=== PATIENT | female | born 1955 | race Hispanic/Latino ===

== ENCOUNTER 2019-07-12 07:36 | Day surgery (SDC) | payer BC, OTHER ==
[2019-07-10 14:59] VITALS: BP 138/64
[2019-07-10 15:19] LABS: BASOPHILS % (AUTO) 0.3 % (0.0-5.0); EOSINOPHILS % (AUTO) 15.4 % (0.0-8.0); HEMATOCRIT 36.4 % (36-48); LYMPHOCYTES % (AUTO) 3.9 % (21.0-51.0); MEAN CORPUSCULAR HEMOGLOBIN 25.5 pg (27.0-33.0); MEAN CORPUSCULAR HGB CONC 31.9 g/dL (32.0-36.0); MONOCYTES % (AUTO) 6.8 % (3.0-13.0); NEUTROPHILS % (AUTO) 72.3 % (40.0-77.0); PLATELET COUNT (AUTO) 219 K/uL (130-400); RED BLOOD CELL COUNT(AUTO) 4.55 MIL/uL (4.00-5.50); RED CELL DISTRIBUTION WIDTH 15.8 % (11.0-15.5); WHITE BLOOD COUNT (AUTO) 24.4 K/uL (4.8-10.8)
[2019-07-10 15:29] LABS: POTASSIUM 3.8 mmol/L (3.5-5.1)
--- NOTE | 2019-07-10 15:30 | NUR ---
PROCEDURE PT HERE FOR PROCEDURE. STATES HAS ISSUES WITH LYING FLAT IN BED DUE TO BACK PAIN. HAS CONCERNS WITH POSITIONING AND ASKING IF PROCEDURE WILL BE WITH ANESTHESIA. CALLED AND INFORMED RITESH MCGINNIS OF PTS CONCERNS WITH POSITION AND ANESTHESIA. PROCEDURE WILL NOT BE DONE WITH ANESTHESIA WILL BE GIVEN MEDICATION INTRA-PROCEDURE TO HELP WITH POSITION.
[2019-07-10 15:33] LABS: INR 1.07 (0.85-1.15); PARTIAL THROMBOPLASTIN TIME 28.2 SEC (26.3-35.5); PROTHROMBIN TIME 11.2 SEC (9.6-11.6)
--- NOTE | 2019-07-11 14:04 | NUR ---
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 New orders for cbc and bmp in am.
[~2019-07-12] VITALS: Ht 165.1 cm; Wt 99.3 kg
[~2019-07-12 07:36] MED LIST: AMLO2.5T4 PO; ASPI-555 PO; CHOL500062 PO; DICL2100G TP; HYOS-28 PO; INSU300I SQ; LACT10SO PO; LANS30CA55 PO; LIDOP TP; METO-408 PO; ONDA8TAB12 PO; PRED20TA3 PO; PREMC VG; SOLI10TA7 PO; TELM40TA8 PO; THYR30TA PO; TRAM50TA4 PO
[2019-07-12 08:26] LABS: APPEARANCE,URINE Clear (CLEAR); BILIRUBIN,URINE Negative (NEGATIVE); COLOR,URINE Yellow (YELLOW); GLUCOSE, URINE (UA) 250 mg/dL (NEGATIVE); KETONES,URINE Trace mg/dL (NEGATIVE); LEUKOCYTE ESTERASE ,URINE Moderate (NEGATIVE); NITRATE,URINE Negative (NEGATIVE); OCCULT BLOOD,URINE Small (NEGATIVE); PH,URINE 6.5 (5.0-8.0); PROTEIN,URINE Trace mg/dL (NEGATIVE)
[2019-07-12 08:34] LABS: BASOPHILS % (AUTO) 0.2 % (0.0-5.0); EOSINOPHILS % (AUTO) 9.2 % (0.0-8.0); MEAN CORPUSCULAR HEMOGLOBIN 25.2 pg (27.0-33.0); MEAN CORPUSCULAR HGB CONC 32.7 g/dL (32.0-36.0); MEAN CORPUSCULAR VOLUME 77.1 fL (79-99); MONOCYTES % (AUTO) 7.3 % (3.0-13.0); NEUTROPHILS % (AUTO) 78.7 % (40.0-77.0); PLATELET COUNT (AUTO) 215 K/uL (130-400); RED CELL DISTRIBUTION WIDTH 15.8 % (11.0-15.5); WHITE BLOOD COUNT (AUTO) 25.3 K/uL (4.8-10.8)
[2019-07-12 08:42] LABS: CREATININE 1.8 mg/dL (0.5-1.5); POTASSIUM 3.6 mmol/L (3.5-5.1)
[2019-07-12 08:53] LABS: BACTERIA,URINE Few /HPF (None Seen)
--- NOTE | 2019-07-12 09:30 | NUR ---
PROCEDURE CANCELLED DR RASHEED SPOKE WITH PATIENT AT BEDSIDE AND EXPLAINED TO PATIENT THE REASONS WHY HE WAS CANCELING PROCEDURE TODAY. PATIENT VERBALIZED UNDERSTANDING. PATIENT INSTRUCTED TO TAKE HER LAB RESULTS TO DR BAER AND DR SINGH FOR REVIEW.
--- NOTE | 2019-07-12 09:45 | NUR ---
PATIENT PROVIDED WITH COPIES OF LAB RESULTS TO TAKE TO HER PCP AND ONCOLOGIST, PATIENT ESCORTED OUT FROM DAY PATIENT AND ACCOMPANIED BY SISTER.
== END 2019-07-12 09:45 | disposition home or self-care (01) ==
LOC: DAH 07:36
PROVIDERS: ATTEND Internal Medicine Cardiovascular Disease
DX: R94.39 Abnormal result of other cardiovascular function study (principal); Z53.8 Procedure and treatment not carried out for other reasons; Z85.51 Personal history of malignant neoplasm of bladder; Z88.3 Allergy status to other anti-infective agents; Z79.82 Long term (current) use of aspirin; Z79.899 Other long term (current) drug therapy; Z79.4 Long term (current) use of insulin; Z82.49 Family history of ischemic heart disease and other diseases of the circulatory system; Z83.3 Family history of diabetes mellitus
CPT/HCPCS: 36415 ×2; 71045; 80048 ×2; 81001; 82948; 85025 ×2; 85610; 85730; 87088; 93005; A4215; A4216; A4221; A4222; A4223 ×3; A4606; A4663